=== PATIENT | male | born 1995 | race Caucasian/White ===

== ENCOUNTER 2024-11-24 02:53 | Inpatient (IN) | payer BC, SELFPAY ==
[2024-11-23 22:12] VITALS: BP 179/120
[2024-11-23 22:30] LABS: % Basophils 0.3 % (0-2); % Eosinophils 0.4 % (0-6); % Immature Granulocytes 0.7 % (0-0.5); % Lymphocytes 6.6 % (20.5-51.1); % Monocytes 7.6 % (1.7-9.3); % Neutrophils 84.4 % (42.2-75.2); Absolute Eosinophils 0.1 10^3/uL (0-0.7); Absolute Immature Granulocytes 0.1 10^3/uL (0-0.05); Absolute Lymphocytes 0.9 10^3/uL (1.2-3.4); Absolute Neutrophils 11.4 10^3/uL (1.4-6.5); Hematocrit 40.6 % (39.0-52.0); Hemoglobin 12.3 g/dL (13.0-18.0); Mean Corp Hgb Conc. 30.3 g/dL (33.0-37.0); Mean Corpuscular Hgb 18.7 pg (27.0-31.0); Mean Corpuscular Volume 61.8 fL (80.0-94.0); Nucleated Red Blood Cells % 0 % (-); Platelet Count 249 10^3/uL (130-400); Red Blood Cell Count 6.57 10^6/uL (4.70-6.10); Red Cell Dist. Width 18.2 % (11.5-14.5); White Blood Cell Count 13.5 10^3/uL (4.8-10.8)
[2024-11-23 22:42] LABS: ALT (SGPT) 85 U/L (0-50); AST (SGOT) 36 U/L (17-59); Albumin 4.4 g/dl (3.5-5.0); Alkaline Phosphatase 78 U/L (38-126); Blood Urea Nitrogen 19 mg/dl (9-20); Calcium 9.1 mg/dl (8.4-10.2); Carbon Dioxide 29 mmol/L (22-30); Chloride 101 mmol/L (98-107); D-Dimer 0.77 ug/mlFEU (0.00-0.50); Glucose 111 mg/dl (70-99); Sodium 136 mmol/L (135-145); Total Bilirubin 1.3 mg/dl (0.2-1.3); eGFR > 60.00
[2024-11-23 23:02] LABS: NT-proBNP 2070 pg/ml; Troponin I 0.037 ng/ml
--- NOTE | 2024-11-23 23:33 | ED.GENMED ---
History of Present Illness
General
Chief Complaint: Breathing Problem
Time Seen by Provider: 11/23/24 23:31
History of Present Illness
History of Present Illness:
29-year-old male with history of high blood pressure, not currently on medications presenting to the emergency department for shortness of breath. Patient reports for the past week he been feeling short of breath, worse when laying flat. He also
notes some lower extremity swelling. Reports a family history of cardiac disease, however denies any personal history of cardiac problems. Does report some chest pain when trying to take a deep breath. He had previously been on blood pressure
medications, however his doctor told him to go off of them. Denies fever or cough. Denies history of blood clot, recent surgery, recent travel. Denies additional acute medical complaint
Phy Exam
Physical Exam
Physical Exam:
General: Well-appearing, no clinical signs of dehydration, nontoxic and in no acute distress
HEENT: protecting airway
Neck: appears supple
CV: Tachycardic, regular rhythm, no evidence of cyanosis
Resp: Mild tachypnea with crackles at the bases
Abd: Soft and non-distended, no tenderness to palpation
Extremities: No deformities, +1 pitting edema
Neuro: alert, no focal neurologic deficit
: deferred
Rectal: deferred
Psych: Normal affect
Skin: Intact
Course
Orders/Labs/Results
Orders:
Orders
11/23/24 22:06
EKG [Electrocardiogram (*1)] Urgent
Reason for Study: Shortness of Breath
EKG- Treatment ONCE
11/23/24 22:20
Complete Blood Count/With Diff Urgent
Comprehensive Metabolic Panel Urgent
D-Dimer Urgent
NT-proBNP Urgent
Troponin I Urgent
11/23/24 23:[address] [CT Chest PE Study] Urgent
Comment:
Reason For Exam: SOB
11/24/24 00:01
Nitroglycerin Sublingual [Nitrostat (Sublingual)] 0.4 mg SL [id number] PRN
11/24/24 00:08
Furosemide [Lasix] 40 mg IV ONCE ONE
Abnormal Lab Results
11/23/24
22:20
WBC 13.5 H 10^3/uL
(4.8-10.8)
RBC 6.57 H 10^6/uL
(4.70-6.10)
Hgb 12.3 L g/dL
(13.0-18.0)
MCV 61.8 L fL
(80.0-94.0)
MCH 18.7 L pg
(27.0-31.0)
MCHC 30.3 L g/dL
(33.0-37.0)
RDW 18.2 H %
(11.5-14.5)
Abs Immat Gran (auto) 0.1 H 10^3/uL
(0-0.05)
Absolute Neuts (auto) 11.4 H 10^3/uL
(1.4-6.5)
Absolute Lymphs (auto) 0.9 L 10^3/uL
(1.2-3.4)
Absolute Monos (auto) 1.0 H 10^3/uL
(0.1-0.6)
Immature Gran % 0.7 H %
(0-0.5)
Neutrophils % 84.4 H %
(42.2-75.2)
Lymphocytes % 6.6 L %
(20.5-51.1)
D-Dimer 0.77 H ug/mlFEU
(0.00-0.50)
Glucose 111 H mg/dl
(70-99)
ALT 85 H U/L
(0-50)
Troponin I 0.037 H* ng/ml
11/23/24 22:20
11/23/24 22:20
Vital Signs
Initial and Last Documented VS:
Initial Vital Signs
Temp Pulse Resp BP Pulse Ox
98.3 F 124 30 179/120 98
11/23/24 22:12 11/23/24 22:12 11/23/24 22:12 11/23/24 22:12 11/23/24 22:12
Last Documented Vital Signs
Temp Pulse Resp BP Pulse Ox
98.3 F 121 28 179/120 98
11/23/24 22:12 11/23/24 23:45 11/23/24 23:45 11/23/24 22:12 11/23/24 22:12
MDM/Problems Addressed
MDM/Problems Addressed:
29-year-old male with history of high blood pressure, not currently on antihypertensive medication, presenting for shortness of breath for the past week. Vital signs on arrival significant for tachycardia and hypertension.
On exam, patient is dyspneic, with mild increased work of breathing. Crackles at the bases and +1 lower extremity edema. Examination is concerning for new onset heart failure. PE is also consideration given tachycardia and dyspnea. Patient
initially seen and examined in triage, had laboratory analysis obtained with positive D-dimer, subsequently sent for CT PE. Troponin also slightly elevated with abnormal EKG, however no STEMI criteria. Lateral T wave inversions. Suspected
ischemic demand. CT without evidence of PE, however does show pulmonary edema and pleural effusions. Again concern for new onset heart failure. Will administer sublingual nitro for blood pressure control and CHF. Will also start patient on
Lasix. Plan for admission for cardiac consultation, as well as cardiac monitoring.
*EKG
Interpreted by ED Provider?: Yes
EKG Intrepretation Date: 11/24/24
EKG Intrepretation Time: 00:15
Interpretation: abnormal
Comparison EKG: no comparison EKG present
Heart Rate: 123
Rate: tachycardiac
Rhythm: sinus
[place]: normal axis
Interval: normal interval
QRS Pattern: normal QRS
Ischemia: T-wave inversion (laterally)
*Critical Care Note
Total Time (30-74mins, 75-104mins- exclusive of procedures): Not Applicable
ED Attending Note
-
Portions of this chart may have been created with voice recognition software.� Occasional wrong word or��sound alike� substitutions may have occurred due to the inherent limitations of voice recognition software.
Discharge Plan
Interventions
Interventions:
*Risk Screen - Suicide Last Done: 11/23/24 22:12
*General Assessment Last Done: 11/23/24 22:12
*Neglect/Abuse Screening Last Done: 11/23/24 22:12
ED- Fall Risk Assessment Last Done: 11/23/24 23:39
*ED COVID-19 Vaccine History Last Done: 11/23/24 22:12
ED- Cardiac Assessment Last Done: 11/23/24 23:39
ED- Pulmonary Assessment Last Done: 11/23/24 23:39
Discharge Date and Time
Print Language: SLOVENIAN
[2024-11-23 23:38] VITALS: BMI 49.6
[2024-11-24] VITALS (17 sets, daily range): BP systolic 101–176; BP diastolic 28–131; BMI 46.4
[2024-11-24] MEDS: NITROSTAT (SUBLINGUAL) 0.4 MG SL ×2 (00:26→06:58)
[2024-11-24] MEDS: LASIX 40 MG IV ×3 (00:28→15:30)
--- NOTE | 2024-11-24 02:23 | HPS.HSE ---
Family Physician
-
Family Physician: NOT KNOW UNKNOWN - PT DOES
Chief Complaint
-
Shortness of breath
History of Present Illness
This is 29-year-old male with no known significant past medical history presenting to the emergency department with approximately 1 week of respiratory symptoms.
Patient reported that he started having symptoms about 1 week ago when he felt he was just under the weather due to some mild shortness of breath. Anytime he tries to lay down he starts coughing which is nonproductive. He denied having fevers or
chills. Over the next few days he reported increasing lower extremity edema and weight gain. He also reports increased abdominal distention. He started developing dyspnea on exertion where he is unable to walk a flight of stairs. At baseline
prior to 1 week ago the patient works for a [employer] company and walks several miles a day without dyspnea on exertion and chest pain. He denies any episodes of exertion or exertional angina. He denies any episodes of chest pain at rest. He
denies any pleuritic discomfort.
Patient is not currently on any medications. He denies any recreational drug use. He reports history of hypertension and was on antihypertensives until about 1. It was not refilled. Reports family history positive for mother with CAD. Denies
family history of hypertrophic heart disease or congenital myocardial disease.
Patient denies any recent travel. Denies any sick contacts.
In the emergency department he was afebrile, blood pressure was elevated at 150/100 with a pulse of 119. Was satting 98% on room air. ECG shows sinus tachycardia to 125.. Patient is in V4 through 6. Troponin was 0.05, BNP was elevated at over
2000. CBC shows a mild leukocytosis to 13,000 but otherwise unremarkable. BUN and creatinine were stable at 19 and 0.9. He had a CT angio of the chest which showed no central or segmental pulmonary embolism. Moderate right and small left pleural
effusion. There was trace pulmonary edema.
Medical History
Past Medical History
Past Medical History: Reports HTN
Past Surgical History: Reports None
Social History
Tobacco: Non-smoker
Alcohol: Occasional
Drug: None
Personal:
Living: With Family
Employment: Employed
Family History
Family History: CAD (mother with h/o DC)
Allergies / Home Medications
Allergies reflects when Allergies were last updated in [facility].
Home Medications with original date entered in [facility]
Allergy/Medication List:
Allergies
Allergy/AdvReac Type Severity Reaction Status Date / Time
No Known Allergies Allergy Unverified 11/23/24 22:11
Home Medications
No Meds [No Current Medications] 11/24/24
Review of Systems
-
Constitutional: Reports No Symptoms
EENT: Reports No Symptoms
Respiratory: Reports Trouble Breathing
Cardiac: Reports No Symptoms
Abdomen/GI: Reports No Symptoms
: Reports No Symptoms
Musculoskeletal: Reports No Symptoms
Skin: Reports No Symptoms
Neurological: Reports No Symptoms
Endocrine: Reports No Symptoms
Hematologic/Lymphatic: Reports No Symptoms
Psych: Reports No Symptoms
Physical Exam
Vital Signs
Vital Signs
Temp Pulse Resp BP Pulse Ox
98.3 F 121 24 152/103 93
11/23/24 22:12 11/24/24 02:15 11/24/24 02:14 11/24/24 00:28 11/24/24 02:14
Physical Exam
General: Well Developed, Well Nourished, No Apparent Distress, Comfortable and Conversant
HEENT: NormoCephalic, Anicteric, Moist mucous membranes, Atraumatic and PERRLA
Respiratory: Clear
Cardiac: S1/S2 and Tachycardia
Breast: Deferred by me
GI: Soft, Non Tender, Non Distended and Normal Bowel Sounds
Rectal: Deferred by Provider
Genito-urinary: Deferred by me
Musculoskeletal: No Clubbing, No Cyanosis, Edema, Left Lower Extremity and Edema, Right Lower Extremity
Skin: Warm
Neuro: AO x 3 and Nonfocal/grossly intact
Psych: Calm
Laboratory Results
-
11/23/24 22:20
11/23/24 22:20
Laboratory Results
Total Bilirubin 1.3 mg/dl (0.2-1.3) 11/23/24 22:20
AST 36 U/L (17-59) 11/23/24 22:20
ALT 85 U/L (0-50) H 11/23/24 22:20
Alkaline Phosphatase 78 U/L (38-126) 11/23/24 22:20
Troponin I 0.037 ng/ml H* 11/23/24 22:20
Data Reviewed
-
CT Scan: Report Reviewed by me
Medical Tests (Nuc Med, Echo, EKG etc): Image Personally Visualized and interpreted
Lab Data: Labs Reviewed by me
Old Records: Reviewed
Impression/Plan
-
IMPRESSION:
29 y.o with apparent new onset heart failure with SOB, orthopnea, LE edema, elevated BNP and small bilateral pleural effusions.
PLAN:
1. New CHF - No obvious etiology of CHF. Given rapid onset and tachycardia suspect he has a depressed EF possibly secondary to a viral myocarditis versus ischemia which is less likely. No murmurs on exam. No h/o IV drug use. No pericardial
effusion on CT. No obvious pericarditis on history. Volume overloaded on examination. Hypertensive
- admit to telemetry
- lasix 40mg iv q 12 for now
- strict i/o and weight measures
- fluid restriction
- check esr, crp, tsh, echo in am
- trend troponins
- Will likely need additional bp meds and GDMT pending echo, will start low dose ARB now, coreg pending echo
- a1c, and urinalysis for proteinuria in am
DVT PPX - lovenox sq
Code status - full code
[2024-11-24] MEDS: BENADRYL 25 MG PO (02:37)
[2024-11-24 06:59] LABS: Blood Urea Nitrogen 17 mg/dl (9-20); Calcium 8.7 mg/dl (8.4-10.2); Carbon Dioxide 29 mmol/L (22-30); Chloride 101 mmol/L (98-107); Estimated Creatinine Clearance > 125 ml/min; Glucose 107 mg/dl (70-99); HDL Cholesterol 41 mg/dl; LDL Cholesterol, Calculated 152 mg/dl; Magnesium 1.9 mg/dl (1.6-2.3); Phosphorus 4.1 mg/dl (2.5-4.5); Potassium 4.3 mmol/L (3.5-5.1); Sodium 141 mmol/L (135-145); Total Cholesterol 207 mg/dl (50-199); Triglyceride 70 mg/dl (10-149); Very Low Density Lipoprotein 14 mg/dl (0-30); eGFR > 60.00
[2024-11-24 07:04] LABS: Troponin I 0.039 ng/ml
[2024-11-24 07:28] LABS: Urine Albumin 2+ (Neg - Trace); Urine Bilirubin Negative (Negative); Urine Character Clear (Clear); Urine Color Yellow; Urine Glucose Negative (Negative); Urine Ketone Negative (Negative); Urine Leukocyte Negative (Negative); Urine Nitrite Negative (Negative); Urine Occult Blood Negative (Negative); Urine Urobilinogen 1+ (Neg - 1+); Urine pH 6.5 (5.0-9.0)
[2024-11-24 07:33] LABS: TSH Reflex To Free T4 0.47 uIU/ml (0.47-4.68)
[2024-11-24] MEDS: LOW STRENGTH ASPIRIN 324 MG PO (07:38)
[2024-11-24] MEDS: DIOVAN 80 MG PO (07:38)
[2024-11-24 08:04] LABS: Erythrocyte Sed Rate 19 mm/hour (0-20)
--- NOTE | 2024-11-24 08:08 | W.PN.HOSP.TC ---
Addendum entered and electronically signed by Axel De Leon MD 11/24/24 15:22:
Acute/subacute heart failure, unknown EF, new onset
IV diuretics, seems to be close to euvolemia
Now able to lie flat however still complains of some chest tightness but has improved significantly
Check 2D echocardiogram
Add beta-iva consider Entresto or Aldactone SGLT2 inhibitor depending on EF
Eventually will need ischemic evaluation
Would appreciate cardiology's input
Nonischemic myocardial infarction
Troponins flat do not trend any further await 2D echocardiogram if shows/demonstrated wall motion abnormalities will require ischemic evaluation
Elevated D-dimer likely secondary to body habitus
CT PE study negative
Morbidity obesity
Dietary and exercise with weight modification,
May be a candidate for GLP-1 agonist or bariatric surgery
Once cleared by cardiology plan to DC
Original Note:
Today's Communication/Plan
-
echo today
cards consult pending
continue IV Lasix
Assessment / Plan
Assessment / Plan
#CHF
Continue Lasix 40 mg every 12
Strict I/O and weight measurements
Continue fluid restriction
Trend troponins
Cardiology consulted, appreciate input
Pending A1c and urinalysis today
Started on low-dose ARB, Coreg pending echo per overnight team
DVT prophylaxis�Lovenox
Full code
Anticipated Discharge: Within 24 hours
Subjective/Interval History
-
Date of Service: November 24, 2024
29-year-old male with past medical history of hypertension presents to [facility] with 1 week of respiratory symptoms, now diagnosed as new CHF. Repeat EKG this morning at 1 AM shows sinus tachycardia after getting sublingual nitroglycerin.
Patient reports being significantly better since yesterday. He states that he has 4 urinals overnight and continues to have frequent urges to urinate. He is able to lay down without feeling short of breath now.
Objective Data
-
Labs:
Laboratory Results
11/23/24 11/24/24
22:20 06:07
WBC 13.5 H
Hgb 12.3 L
Hct 40.6
Plt Count 249
Sodium 136 141
Potassium 4.0 4.3
Chloride 101 101
Carbon Dioxide 29 29
BUN 19 17
Creatinine 0.9 0.9
Glucose 111 H 107 H
Calcium 9.1 8.7
Total Bilirubin 1.3
AST 36
ALT 85 H
Alkaline Phosphatase 78
Vital Signs:
Vital Signs
Temp Pulse Resp BP Pulse Ox
99.2 F 116 22 167/99 95
11/24/24 07:32 11/24/24 07:38 11/24/24 06:12 11/24/24 07:38 11/24/24 06:12
I&O
11/23/24 11/24/24 11/25/24
06:59 06:59 06:59
Output Total 400 / 400
Balance -400 / -400
Review of Systems
-
History Source: Patient
Constitutional: Reports No Symptoms
EENT: Reports No Symptoms Reported
Respiratory: Reports Trouble Breathing
Cardiac: Reports No Symptoms
Abdomen/GI: Reports No Symptoms
Breast: Reports No Symptoms
Genitourinary: Reports No Symptoms
Musculoskeletal: Reports No Symptoms
Skin: Reports No Symptoms
Physical Exam
-
General: Well Developed, Well Nourished, No Apparent Distress, Comfortable and Conversant
HEENT: Normocephalic and Atraumatic
Respiratory: Clear to Auscultation
Cardiac: Regular Rhythm and S1/S2
GI: Soft, Nontender, Nondistended and Normal Bowel Sounds
Musculoskeletal: No Clubbing, No Cyanosis, Edema, Right Lower Extrem and Edema, Left Lower Extrem
Skin: Warm and Dry
Neuro: AO x 3
Psych: Calm
Data Reviewed
-
CT Scan: Report Reviewed by me
Labs: Labs Reviewed by me and Discussed with Physician
Old Records: Reviewed
[2024-11-24 09:32] LABS: Urine Amorphous Seen; Urine Squamous Cell 0-2 /LPF (Few)
[2024-11-24 09:33] LABS: Urine Red Blood Cell 0-2 /HPF (0-2); Urine White Cell 0-2 /HPF (0-5)
[2024-11-24 10:05] LABS: Glycohemoglobin (HgbA1c) 5.4 % (4.0-5.6)
--- NOTE | 2024-11-24 10:33 | CON.CAR ---
Addendum entered and electronically signed by Dave Ch MD 11/24/24 11:48:
29-year-old man with hypertension and obesity admitted with increasing shortness of breath, ELMORE, weight gain and edema over the last week or 2. His hypertension has been untreated. Currently, having received furosemide his dyspnea is better.
proBNP was 2079 with a troponin of 0.039.
Tobacco and alcohol: Negative
SH: - Works for [employer]
Allergies: None
Meds: None
116/67, pulse 109, respiratory 9 teen, afebrile, sats 97%, weight is 170.5 kg, head neck exam unremarkable, pleasant, obese, lungs clear, distant heart tones, possibly very soft systolic murmur at apex JVD hard to assess, abdomen obese, 1+ to 2+
edema
EKG: Sinus rhythm, LVH with QRS widening, nonspecific ST and T wave changes
Chest CT: Mild pulmonary edema with moderate right and small left effusion, cholelithiasis, cardiomegaly, no central pulmonary embolus
White count 13.5, hemoglobin 12.3, platelets 249, D-dimer 0.77, BUN and creatinine are 17 and 0.9, proBNP is 2069, troponin is 0.039
Echo: Pending
Impression:
Acute/subacute heart failure unknown EF, suspect HFrEF with nonischemic cardiomyopathy
Morbid obesity
Suspected sleep apnea
Hypertension
Plan:
Suspect he has a nonischemic cardiomyopathy with reduction in EF likely related to his weight.
Will check echocardiogram and thereafter initiate GDMT. Currently on IV furosemide and valsartan. Aspirin has been started as well.
Next will be to add beta-iva, consider Entresto, spironolactone, SGLT2 antagonist.
Eventual ischemic evaluation, though the likelihood of obstructive CAD is low.
Original Note:
Consultation
Consultation Request
Date/Time Consultation Performed: 11/24/24
Requesting Provider: Dr. Myers
Performing Provider: Sridevi Huerta PA-C for Dr. JOHANNA Ch
Reason for Consultation: CHF
Medical History
-
Chief Complaint: SOB
History of Present Illness:
Patient, who goes by Sergio, is a 29 yo M with PMH of HTN, obesity who presented to [facility] for evaluation of SOB. He reports noting worsening ELMORE with associated orthopnea, weight gain, LE edema over the last week. He reports he was diagnosed with HTN ~2
years ago and was started on a medication for this however never followed up and his prescription ran out. He reports for the last 2 days he has had chest tightness with exertion, relieved by rest. Last evening while in ER, he walked around and
reports developing chest discomfort which resolved after 30 minutes of resting. He reports he presently has no chest discomfort. ProBNP 2079. trop 0.039. Denies tobacco or significant ETOH use. Cardiology consulted for evaluation.
PMH:
HTN
Obesity
Past Medical History
Past Medical History: Other (in HPI)
Social History
Tobacco: Non-Smoker
Alcohol: Other (rare)
Employment: Employed
Family History
Family History: CAD
Allergies / Home Medications
Allergy/AdvReac Type Severity Reaction Status Date / Time
No Known Allergies Allergy Unverified 11/23/24 22:11
�Medication �Instructions �Recorded �Confirmed �Type
No Meds [No Current Medications] 11/24/24 11/24/24 History
Review of Systems
-
History Source: Patient
All other systems: Negative unless noted
Physical Exam
Vital Signs
Temp Pulse Resp BP Pulse Ox
99.2 F 116 22 167/99 95
11/24/24 07:32 11/24/24 07:38 11/24/24 06:12 11/24/24 07:38 11/24/24 06:12
Lab Results
11/23/24 22:20
11/24/24 06:07
Troponin I 0.039 ng/ml H* 11/24/24 06:07
Zsv-D-Nhjpfopopxc Pept 2070 pg/ml 11/23/24 22:20
Physical Exam
General: No Apparent Distress, Comfortable and Other (obese)
HEENT: Normocephalic, Anicteric and Moist Mucous Membranes
Respiratory: Non Labored Respirations and Other (decreased BS B/L)
Cardiac: S1/S2, Regular Rhythm and Other (tachy)
GI: Soft, Non Tender, Non Distended and Normal Bowel Sounds
Musculoskeletal: No Clubbing, No Cyanosis and Edema (2+ of B/L LE)
Skin: Warm and Dry
Neuro: AO x 3
Impression / Plan
-
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
Assessment:
Presentation with SOB
Acute CHF, unknown type
Chest tightness
Elevated troponin
Leukocytosis
Elevated CRP
Anemia
HTN
Obesity
family history of CAD
ECHO 11/24/24: pending
Plan:
-Patient presents with shortness of breath/dyspnea on exertion as well as orthopnea, weight gain, lower extremity edema over the last week or so.
-proBNP elevated at [address] with evidence of pulmonary edema as well as moderate right and small left pleural effusions
-with acute CHF, unknown type. Agree with IV Lasix diuresis. Patient reports improvement in breathing since admission
-Check echo
-CHF education
-Troponin 0.039, trend to peak. He does report chest tightness with exertion over the last 2 days. He is currently pain-free. EKG sinus tachycardia with lateral T wave inversion, no prior to compare. Was given 324 mg aspirin in ER. Will start
on aspirin 81 mg daily. Will consider for IV heparin. Would consider eventual inpatient ischemic evaluation
-needs improved BP control. has history of HTN diagnosed 2 years ago however did not follow up to continue his medication. started on valsartan 80mg daily this admission.
-LDL 152. consider addition of statin therapy
-d/w nursing
Data Reviewed
-
EKG: Tracing Personally Visualized and interpreted
CT Scan: Report Reviewed by me
Labs: Labs Reviewed by me
[2024-11-24 12:23] LABS: Troponin I 0.037 ng/ml
--- NOTE | 2024-11-24 13:22 | PTCARENOTE ---
Report given to IVU RN, pt transferred to rm [id number] with all belongings.
--- NOTE | 2024-11-24 14:42 | CARDSERVLU ---
Echocardiogram with [facility] completed after protocol screening completed. Allergies verified.
Patent IV site: LAC (existing INT)
IV site flushed with 0.9% NaCl pre and post administration.
Diluted bolus method utilized to enhance visualization of ventricular reyna.
Total volume given: 3 mL
Patient tolerated all procedures well without complications.
IV flushed with good blood return.
--- NOTE | 2024-11-24 14:51 | CM ---
spoke to pt in cardiac cathlab holding area, he is prev indep, lives with his in an apt with 10 steps to enter. he denies any dc planning needs or dme's. plan is for dc to home when medically stable.
--- NOTE | 2024-11-24 15:52 | CM ---
priced meds with pts perscript plan ([phone])
Entresto is tier2- $30/month
both jardiance and farxiga require step therapy and need a prior auth-#[id number]
[2024-11-24] MEDS: LOVENOX 40 MG SC (18:22)
[2024-11-24] MEDS: ALDACTONE 12.5 MG PO (18:22)
--- NOTE | 2024-11-24 19:28 | PTCARENOTE ---
Pt with new onset CHF received from laboratory tester holding area. Pt denies any discomfort, he states his breathing is much better but still looks visibly SOB at rest and with exertion. Pt on room air, resp. rate up to 24. Telemetry shows sinus rhythm Pt
with very loud snoring and apneic periods. Echo done. Pt starting learning about CHF, new medications and his own health care.
[2024-11-24] MEDS: COREG 3.125 MG PO (20:09)
[2024-11-25] VITALS (8 sets, daily range): BP systolic 124–157; BP diastolic 82–105; BMI 45.8
[2024-11-25 04:28] LABS: Hematocrit 38.7 % (39.0-52.0); Hemoglobin 12.1 g/dL (13.0-18.0); Mean Corp Hgb Conc. 31.3 g/dL (33.0-37.0); Mean Corpuscular Volume 60.7 fL (80.0-94.0); Mean Platelet Volume 9.3 fL (7.4-10.4); Platelet Count 227 10^3/uL (130-400); Red Blood Cell Count 6.38 10^6/uL (4.70-6.10); Red Cell Dist. Width 17.6 % (11.5-14.5); White Blood Cell Count 9.4 10^3/uL (4.8-10.8)
[2024-11-25 04:44] LABS: Blood Urea Nitrogen 21 mg/dl (9-20); Calcium 8.9 mg/dl (8.4-10.2); Carbon Dioxide 27 mmol/L (22-30); Chloride 102 mmol/L (98-107); Estimated Creatinine Clearance > 125 ml/min; Glucose 92 mg/dl (70-99); Sodium 139 mmol/L (135-145); eGFR > 60.00
[2024-11-25] MEDS: COREG 3.125 MG PO ×2 (08:34→19:36)
[2024-11-25] MEDS: DIOVAN 80 MG PO (08:37)
[2024-11-25] MEDS: LASIX 40 MG IV ×2 (08:37→15:59)
[2024-11-25] MEDS: ALDACTONE 12.5 MG PO (08:37)
--- NOTE | 2024-11-25 09:03 | W.PN.CARDCBS ---
Addendum entered and electronically signed by Lucia Cueto MD 11/25/24 10:11:
I saw and examined the patient.
The Wharf Laborer's note was reviewed and I agree with the note.
Comment: Patient presented with shortness of breath and heart failure with mildly reduced ejection fraction. Exam stable with distant heart sounds, decreased breath sounds at the bases with few crackles and trace lower extremity edema. He is
feeling better overall and diuresing well. Hypertension also noted which is likely contributing and new medications noted with guideline directed medical therapy just started. Interestingly patient truly started symptoms about a week ago.
Symptoms appear to be acute. Patient with albumin in urine with no other cause. Patient has not had any infection recently. Triglycerides normal, blood pressure elevated, renal function normal.Troponins mildly elevated. CRP also elevated at 60.
(No known rheumatologic conditions or symptoms)
Plan at this time:
-Guideline directed medical therapy for heart failure with mildly reduced ejection fraction.
-Will switch valsartan to Entresto twice daily. La is acceptable through case management.
-Continue good blood pressure control. Next plan will be to further increase carvedilol
-Will add SGLT2 inhibitor prior to discharge.
-Continue diuresis for now.
-Right and left heart catheterization on Wednesday. Discussed with patient. Will continue discussed in detail and answered questions.
-Eventual outpatient sleep apnea testing (he snores by report)
-Given elevated protein in urine I have asked primary service (through secure texting) to exclude nephropathy.
Original Note:
Today's Communication / Plan
-
Continue diuresis
Continue medical therapy with coreg, valsartan, and spironolactone
Consider addition of SGLT2 inhibitor
Eventual C
Consider nephro evaluation
Impression / Plan
-
Primary Produce Associate: None prior to admission, initially seen by JOHANNA Ch
Assessment:
Presentation with SOB
Acute HFmrEF
Cardiomyopathy, EF 40%
Chest tightness
Nonischemic myocardial injury
Leukocytosis
Elevated CRP
Anemia
HTN
Obesity
family history of CAD
ECHO 11/24/24: EF 40%, mild-mod LVH, global hypokinesis, mild MR, normal size RV with mild hypokinesis
Plan:
-Presented with SOB, orthopnea, weight gain, and LE edema. Admitted with new HFmrEF.
-Diuresing with IV lasix 40mg BID. Weight down 19 lbs to 356 lbs on 11/25.
-Creat stable at 0.9. Continue diuresis and follow daily weights, I&Os.
-Echo 11/24 with EF 40%, mild MR, and mild-moderate LVH as noted above.
-CHF education.
-Troponin peaked at 0.039, down to 0.037. Suspect nonischemic myocardial injury in the setting of acute heart failure.
-No further chest pain. Continue aspirin 81mg daily. Eventually will need ischemic evaluation.
-BP has been uncontrolled for likely at least 2 years.
-New to valsartan 80mg daily, coreg 3.125mg BID, and spironolactone 12.5mg daily 11/24. BP improving.
-Eventually consider addition of SGLT2 inhibitor.
-LDL 152. consider addition of statin therapy
-Noted to have 2+ protein in urine. Consider nephrology eval given presentation w/ new anasarca.
HPI: Patient, who goes by Sergio, is a 29 yo M with PMH of HTN, obesity who presented to [facility] for evaluation of SOB. He reports noting worsening ELMORE with associated orthopnea, weight gain, LE edema over the last week. He reports he was diagnosed with
HTN ~2 years ago and was started on a medication for this however never followed up and his prescription ran out. He reports for the last 2 days he has had chest tightness with exertion, relieved by rest. Last evening while in ER, he walked around
and reports developing chest discomfort which resolved after 30 minutes of resting. He reports he presently has no chest discomfort. ProBNP 2079. trop 0.039. Denies tobacco or significant ETOH use. Cardiology consulted for evaluation.
Progress Note - Produce Associate
Subjective
Date of Service: November 25, 2024
Reports breathing is improving w/ diuresis.
Objective
Labs:
11/25/24 03:54
11/25/24 03:54
Labs
Hgb 12.1 g/dL (13.0-18.0) L 11/25/24 03:54
Hct 38.7 % (39.0-52.0) L 11/25/24 03:54
Plt Count 227 10^3/uL (130-400) 11/25/24 03:54
Sodium 139 mmol/L (135-145) 11/25/24 03:54
Potassium 4.0 mmol/L (3.5-5.1) 11/25/24 03:54
BUN 21 mg/dl (9-20) H 11/25/24 03:54
Creatinine 0.9 mg/dL (0.7-1.3) 11/25/24 03:54
Glucose 92 mg/dl (70-99) 11/25/24 03:54
Troponins
11/23/24 11/24/24 11/24/24
22:20 06:07 11:31
Troponin I 0.037 H* 0.039 H* 0.037 H*
Vital Signs and I&O:
Vital Signs
Temp Pulse Resp BP Pulse Ox
98.2 F 101 18 155/91 97
11/25/24 08:02 11/25/24 08:34 11/25/24 08:02 11/25/24 08:34 11/25/24 08:02
Vital Signs
Temp Pulse Resp BP Pulse Ox
98.2 F 101 18 155/91 97
11/25/24 08:02 11/25/24 08:34 11/25/24 08:02 11/25/24 08:34 11/25/24 08:02
Intake & Output
11/23/24 11/24/24 11/25/24 11/26/24
06:59 06:59 06:59 06:59
Intake Total 660 / 660
Output Total 800 / 800
Balance -140 / -140
Physical Exam
Physical Exam
GEN: No distress, awake, alert, oriented x3
HEENT: supple, anicteric, mmm
LUNGS: CTA b/l, no wheezes/rales
CV: Reg, S1/S2, no murmur
EXT: No clubbing, or cyanosis, +1 edema b/l LE
NEURO: Gross non-focal
SKIN: Warm, dry, no rash
[2024-11-25] MEDS: LOW STRENGTH ASPIRIN 81 MG PO (11:37)
--- NOTE | 2024-11-25 12:14 | W.PN.HOSP.TC ---
Today's Communication/Plan
-
Assessment / Plan
Assessment / Plan
NAD
Scleral Anicteric
MMM
No JVD, No HJR
Bibasilar crackles
RRR, S1/S2
Obese ,soft, NT, ND, BS+
Warm, Dry, 1+ ptting edema
AAOx3
Calm
Acute/subacute heart failure mr EF - 40%, new onset
IV diuretics, seems to be close to euvolemia
Add beta-iva
Add entresto
Add MRA
SGLT2i on DC pper Cards
LHC//RHC on 11/27
Would appreciate cardiology's input
Nonischemic myocardial infarction
Troponins flat, 2d echo show global hypokinesis, likely NICM, LHC/RHC planned for 11/27
CRP is up
Elevated D-dimer likely secondary to body habitus
CT PE study negative
Morbidity obesity
Dietary and exercise with weight modification,
May be a candidate for GLP-1 agonist or bariatric surgery
Anticipated Discharge: > 48 hours
Subjective/Interval History
-
Date of Service: November 25, 2024
Seen and examined. No new complaints. No acute overnight events.
Understands that he is going for left and right heart catheterization on Monday 11/27
Objective Data
-
Labs:
Laboratory Results
11/25/24
03:54
WBC 9.4
Hgb 12.1 L
Hct 38.7 L
Plt Count 227
Sodium 139
Potassium 4.0
Chloride 102
Carbon Dioxide 27
BUN 21 H
Creatinine 0.9
Glucose 92
Calcium 8.9
Vital Signs:
Vital Signs
Temp Pulse Resp BP Pulse Ox
98.5 F 96 18 124/82 100
11/25/24 11:31 11/25/24 12:00 11/25/24 11:31 11/25/24 11:35 11/25/24 11:31
I&O
11/24/24 11/25/24 11/26/24
06:59 06:59 06:59
Intake Total 660 / 660
Output Total 800 / 800
Balance -140 / -140
[2024-11-25 12:31] LABS: Protein/creatinine Ratio 0.4; Urine Protein 16 mg/dl
[2024-11-25] MEDS: LOVENOX 40 MG SC (18:34)
[2024-11-25] MEDS: ENTRESTO 24 MG/26 MG 1 TAB PO (19:36)
--- NOTE | 2024-11-25 21:52 | PTCARENOTE ---
Pt rec'd at change of shift awake,alert no c/o pain or sob. Pt aware of fluid restriction and maintaining accurate I@O. Sinus on telemetry.
[2024-11-26] VITALS (9 sets, daily range): BP systolic 117–148; BP diastolic 82–130; BMI 45.1
[2024-11-26 04:59] LABS: Hematocrit 43.3 % (39.0-52.0); Hemoglobin 13.1 g/dL (13.0-18.0); Mean Corp Hgb Conc. 30.3 g/dL (33.0-37.0); Mean Corpuscular Hgb 18.7 pg (27.0-31.0); Mean Corpuscular Volume 61.9 fL (80.0-94.0); Mean Platelet Volume 9.6 fL (7.4-10.4); Platelet Count 254 10^3/uL (130-400); Red Blood Cell Count 6.99 10^6/uL (4.70-6.10); White Blood Cell Count 8.6 10^3/uL (4.8-10.8)
[2024-11-26 05:18] LABS: Blood Urea Nitrogen 22 mg/dl (9-20); Calcium 9.1 mg/dl (8.4-10.2); Carbon Dioxide 28 mmol/L (22-30); Chloride 102 mmol/L (98-107); Estimated Creatinine Clearance > 125 ml/min; Glucose 97 mg/dl (70-99); Potassium 4.3 mmol/L (3.5-5.1); Sodium 140 mmol/L (135-145); eGFR > 60.00
[2024-11-26] MEDS: ENTRESTO 24 MG/26 MG 1 TAB PO ×2 (08:27→20:24)
[2024-11-26] MEDS: LOW STRENGTH ASPIRIN 81 MG PO (08:27)
[2024-11-26] MEDS: ALDACTONE 12.5 MG PO (08:27)
[2024-11-26] MEDS: LASIX 40 MG IV ×2 (08:28→16:57)
[2024-11-26] MEDS: COREG 3.125 MG PO (08:28)
--- NOTE | 2024-11-26 09:59 | PTCARENOTE ---
Assumed care. Patient feeling better, denies shortness of breath, lungs clear. SR HR in the 90's. Plan of care reviewed, call rizzo in reach
--- NOTE | 2024-11-26 12:02 | W.PN.HOSP.TC ---
Today's Communication/Plan
-
for lhc/rhc tomorow
Assessment / Plan
Assessment / Plan
NAD
Scleral Anicteric
MMM
No JVD, No HJR
Bibasilar crackles
RRR, S1/S2
Obese ,soft, NT, ND, BS+
Warm, Dry, 1+ ptting edema
AAOx3
Calm
Acute/subacute heart failure mr EF - 40%, new onset
IV diuretics, seems to be close to euvolemia
Add beta-iva
Add entresto
Add MRA
SGLT2i on DC per Cards
LHC//RHC on 11/27
If NICM then would consider a Cardiac MRI
Outpaitent sleep study
Nonischemic myocardial infarction
Troponins flat, 2d echo show global hypokinesis, likely NICM, LHC/RHC planned for 11/27
CRP is up
Elevated D-dimer likely secondary to body habitus
CT PE study negative
Morbidity obesity
Dietary and exercise with weight modification,
May be a candidate for GLP-1 agonist or bariatric surgery
Anticipated Discharge: 24 - 48 hours
Subjective/Interval History
-
Date of Service: November 26, 2024
seen and examined
no new comaplitns
no acute overnight events
Objective Data
-
Labs:
Laboratory Results
11/26/24
04:39
WBC 8.6
Hgb 13.1
Hct 43.3
Plt Count 254
Sodium 140
Potassium 4.3
Chloride 102
Carbon Dioxide 28
BUN 22 H
Creatinine 0.9
Glucose 97
Calcium 9.1
Vital Signs:
Vital Signs
Temp Pulse Resp BP Pulse Ox
98.3 F 93 20 137/90 97
11/26/24 11:07 11/26/24 10:00 11/26/24 11:07 11/26/24 07:28 11/26/24 11:07
I&O
11/25/24 11/26/24 11/27/24
06:59 06:59 06:59
Intake Total 660 / 660 480 / 480
Output Total 800 / 800 1700 / 1700
Balance -140 / -140 -1220 / -1220
--- NOTE | 2024-11-26 14:32 | W.PN.CARDCBS ---
Today's Communication / Plan
-
Continue diuresis
Heart failure team consult. Dietary education.
Guideline directed medical therapy as tolerates. Will increase carvedilol to 6.25 mg twice daily. Continue Entresto. Continue spironolactone. Eventually could consider SGLT2 inhibitor.
Right left heart catheterization tomorrow.
Outpatient sleep study
Impression / Plan
-
Primary Investigative Research Specialist: None prior to admission, initially seen by JOHANNA Ch
Assessment:
Presentation with SOB
Acute HFmrEF
Cardiomyopathy, EF 40%
Chest tightness
Nonischemic myocardial injury
Leukocytosis
Elevated CRP
Anemia
HTN
Obesity
family history of CAD
ECHO 11/24/24: EF 40%, mild-mod LVH, global hypokinesis, mild MR, normal size RV with mild hypokinesis
Plan:
-Presented with SOB, orthopnea, weight gain, and LE edema. Admitted with new HFmrEF of unclear etiology with minimally elevated troponins in the setting of hypertension.
-Diuresing with IV lasix 40mg BID. Weight down 24 pounds to 351 pounds 11/26/2024. Hold Lasix tomorrow.
-Heart failure team consult. Dietary education.
-Creat stable. Continue diuresis and follow daily weights, I&Os.
-Echo 11/24 with EF 40%, mild MR, and mild-moderate LVH as noted above.
-Guideline directed medical therapy as tolerates. Blood pressure has improved. Will increase carvedilol to 6.25 mg twice daily. Continue Entresto. Continue spironolactone. Eventually could consider SGLT2 inhibitor.
-Given new diagnosis of cardiomyopathy with acute heart failure with mildly reduced ejection fraction and mildly elevated troponins with initial chest pain patient will undergo right and left heart catheterization tomorrow. Risks and benefits and
procedure discussed at length and he is agreeable to proceed. If negative etiology could be hypertension related or myocarditis related. Elevated CRP noted.
-Troponin peaked at 0.039, down to 0.037.
-Continue aspirin 81mg daily.
-BP has been uncontrolled for likely at least 2 years. Currently stable.
-He will need outpatient sleep study.
-LDL 152. consider addition of statin therapy
-Noted to have 2+ protein in urine. Urine creatinine levels are acceptable. No further workup at this time and this may be in part related to uncontrolled hypertension.
HPI: Patient, who goes by Sergio, is a 29 yo M with PMH of HTN, obesity who presented to [facility] for evaluation of SOB. He reports noting worsening ELMORE with associated orthopnea, weight gain, LE edema over the last week. He reports he was diagnosed with
HTN ~2 years ago and was started on a medication for this however never followed up and his prescription ran out. He reports for the last 2 days he has had chest tightness with exertion, relieved by rest. Last evening while in ER, he walked around
and reports developing chest discomfort which resolved after 30 minutes of resting. He reports he presently has no chest discomfort. ProBNP 2079. trop 0.039. Denies tobacco or significant ETOH use. Cardiology consulted for evaluation.
Progress Note - Investigative Research Specialist
Subjective
Date of Service: November 26, 2024
He denies chest pain, palpitations, dizziness and syncope
Objective
Labs:
11/26/24 04:39
11/26/24 04:39
Labs
Hgb 13.1 g/dL (13.0-18.0) 11/26/24 04:39
Hct 43.3 % (39.0-52.0) 11/26/24 04:39
Plt Count 254 10^3/uL (130-400) 11/26/24 04:39
Sodium 140 mmol/L (135-145) 11/26/24 04:39
Potassium 4.3 mmol/L (3.5-5.1) 11/26/24 04:39
BUN 22 mg/dl (9-20) H 11/26/24 04:39
Creatinine 0.9 mg/dL (0.7-1.3) 11/26/24 04:39
Glucose 97 mg/dl (70-99) 11/26/24 04:39
Troponins
11/23/24 11/24/24 11/24/24
22:20 06:07 11:31
Troponin I 0.037 H* 0.039 H* 0.037 H*
Vital Signs and I&O:
Vital Signs
Temp Pulse Resp BP Pulse Ox
98.3 F 84 20 148/88 97
11/26/24 11:07 11/26/24 13:00 11/26/24 11:07 11/26/24 11:06 11/26/24 11:07
Vital Signs
Temp Pulse Resp BP Pulse Ox
98.3 F 84 20 148/88 97
11/26/24 11:07 11/26/24 13:00 11/26/24 11:07 11/26/24 11:06 11/26/24 11:07
Intake & Output
11/24/24 11/25/24 11/26/24 11/27/24
06:59 06:59 06:59 06:59
Intake Total 660 / 660 480 / 480
Output Total 800 / 800 1700 / 1700 1100 / 1100
Balance -140 / -140 -1220 / -1220 -1100 / -1100
Physical Exam
Physical Exam
General: Well developed, well nourished in NAD.
Heart: Distant heart sounds non displaced PMI, RRR, no murmurs, No S3, S4, no rubs.
Lungs: Clear to auscultation bilaterally, no wheeze, rhonchi, rubs bilaterally,
normal expiratory phase.
Extremities: No clubbing, cyanosis and trace edema bilaterally.
Neuro: Grossly nonfocal, awake, alert and oriented x3.
[2024-11-26] MEDS: LOVENOX 40 MG SC (16:57)
[2024-11-26] MEDS: COREG 6.25 MG PO (20:25)
--- NOTE | 2024-11-26 21:00 | PTCARENOTE ---
Rec'd at change of shift. AAO*3, VSS, and in NSR on TELE monitor. Pt denies any pain or discomfort. Pt aware on NPO status at midnight and agreed to fluid restriction. Pt resting with call rizzo in reach and plan of care ongoing.
[2024-11-27] VITALS (13 sets, daily range): BP systolic 94–150; BP diastolic 61–91; BMI 45.1
[2024-11-27 04:34] LABS: Hematocrit 45.1 % (39.0-52.0); Hemoglobin 13.5 g/dL (13.0-18.0); Mean Corp Hgb Conc. 29.9 g/dL (33.0-37.0); Mean Corpuscular Hgb 18.6 pg (27.0-31.0); Mean Corpuscular Volume 62.3 fL (80.0-94.0); Mean Platelet Volume 9.5 fL (7.4-10.4); Platelet Count 276 10^3/uL (130-400); Red Blood Cell Count 7.24 10^6/uL (4.70-6.10); Red Cell Dist. Width 17.9 % (11.5-14.5); White Blood Cell Count 7.8 10^3/uL (4.8-10.8)
--- NOTE | 2024-11-27 07:40 | W.PN.HOSP.TC ---
Today's Communication/Plan
-
Left heart cath right heart cath today
Assessment / Plan
Assessment / Plan
#HFmrEF
Right/left heart cath today
Continue IV Lasix 40 mg every 12 hours
Continue carvedilol 6.25 twice daily
Continue Entresto twice daily
Continue spironolactone 12.5 mg
Outpatient sleep study
#Hypertension
Continue hydralazine 10 mg
#Nonischemic myocardial infarction
2D echo shows global hypokinesis
Left heart cath right heart cath planned for today
CRP elevated, continue to monitor
#Elevated D-dimer likely
CT PE negative
#Morbid obesity
Recommended dietary and exercise modification
Follow-up with PCP outpatient for consideration of GLP-1 agonist or surgery
Full code
Anticipated Discharge: 24 - 48 hours
Subjective/Interval History
-
Date of Service: November 27, 2024
Overnight patient reports no acute events. He states that he is feeling significantly better than last week. He is able to comfortably lay on his back. He feels that the swelling in his legs is gone down.
Objective Data
-
Labs:
Laboratory Results
11/27/24
04:26
WBC 7.8
Hgb 13.5
Hct 45.1
Plt Count 276
Vital Signs:
Vital Signs
Temp Pulse Resp BP Pulse Ox
97.4 F 88 18 134/89 98
11/27/24 07:25 11/27/24 07:24 11/27/24 07:25 11/27/24 07:24 11/27/24 07:25
I&O
11/26/24 11/27/24 11/28/24
06:59 06:59 06:59
Intake Total 480 / 480 480 / 480
Output Total 1700 / 1700 2225 / 2225
Balance -1220 / -1220 -174 / -1744
Physical Exam
-
General: Well Developed, Well Nourished, No Apparent Distress, Comfortable, Conversant and Morbidly Obese
HEENT: Normocephalic and Atraumatic
Respiratory: Clear to Auscultation
Cardiac: Regular Rhythm and S1/S2
GI: Soft, Nontender, Nondistended and Normal Bowel Sounds
Musculoskeletal: No Clubbing, No Cyanosis, Edema, Right Lower Extrem and Edema, Left Lower Extrem
Skin: Warm and Dry
Neuro: AO x 3
Psych: Calm
Data Reviewed
-
Labs: Labs Reviewed by me and Discussed with Physician
Old Records: Reviewed
--- NOTE | 2024-11-27 08:20 | W.PN.UPDATE ---
Update Note
Progress Note Update
I saw and evaluated the patient. I reviewed the resident�s note and agree with findings and plan as documented in the resident�s note.
Denies chest pain or shortness of breath.
Gen: NAD, AAOx3.
Eyes: EOMI, PERRLA, no scleral icterus.
Neck: supple.
CV: RRR, +S1/S2, no m/r/g.
Resp: CTAB, no rales, wheezes, or rhonchi.
Abd: +BS, soft, NT, ND
Skin: No rashes.
Neuro: CN 2-12 intact, non-focal.
Psych: Normal mood and affect.
CTA chest: Evaluation of pulmonary arterial vasculature significantly limited by motion artifact, without findings to suggest central pulmonary embolism. Peripheral pulmonary embolism cannot be excluded. Findings suggesting mild pulmonary edema with
moderate right and small left pleural effusions. Mild cardiomegaly. Cholelithiasis.
Echo:
1. Dilated left ventricle with mild to moderate left ventricular hypertrophy, global hypokinesis and ejection fraction 40%
2. Mitral annular calcification, thickened mitral leaflets, mild mitral regurgitation and dilated left atrium
3. Normal aortic valve
4. Normal size right ventricle with mild hypokinesis, could not determine pulmonary artery systolic pressure
Acute HFmrEF:
-echo above, EF 40%
-cont IV Lasix
-cont BB/Entresto/Aldactone
-SGLT2i on discharge as per cards
-LHC/RHC today
-If NICM then would consider a Cardiac MRI
-outpatient sleep study
-elevated trop is nonischemic myocardial ijnury
Other problems:
Elevated D-dimer likely secondary to body habitus
Morbidity obesity due to excess calories
FULL/Lovenox
[2024-11-27] MEDS: ALDACTONE 12.5 MG PO (09:11)
[2024-11-27] MEDS: LOW STRENGTH ASPIRIN 81 MG PO (09:12)
[2024-11-27] MEDS: COREG 6.25 MG PO ×2 (09:12→20:41)
[2024-11-27] MEDS: ENTRESTO 24 MG/26 MG 1 TAB PO ×2 (09:12→20:41)
[2024-11-27] MEDS: FLUSH (NSS) 1 FLUSH IV (09:13)
--- NOTE | 2024-11-27 10:10 | PTCARENOTE ---
Received patient this morning resting in bed, S.O. at the bedside. Patient is NPO x meds, waiting for cardiac cath today.
[2024-11-27] MEDS: LASIX IV (11:30)
--- NOTE | 2024-11-27 12:50 | ITS.CL.CATH ---
Physicians Assistant - Catheterization
Cardiac Catheterization
Procedure Report:
LEFT AND RIGHT HEART CATHETERIZATION
Date of Procedure: November 27, 2024
Referring: Dave Ch MD
PROCEDURES:
1. Left heart catheterization, coronary angiogram.
2. Right heart catheterization.
3. Ultrasound-guided access
INDICATION: 29-year-old man with past medical history of hypertension, hyperlipidemia, morbid obesity who presents with progressive dyspnea on exertion and lower extremity edema found to have acute decompensated systolic and diastolic heart failure
and a new ejection fraction of 40 to 45% being referred for left and right heart catheterization to assess invasive hemodynamics and rule out obstructive CAD.
ACCESS: 1. Right radial artery, 6 Argentine sheath, under ultrasound guidance.
2. Right brachial vein, 6 Argentine sheath
Ultrasound was utilized for vascular access. The radial artery was visualized under ultrasound, and the vessel was patent and pulsatile. An image was stored permanently in the patient's medical record. Under direct ultrasound guidance, a 6 Argentine
sheath was inserted into the artery using a micropuncture kit through a modified Seldinger technique.
HEMODYNAMICS : (mmHg)
RA (m) : 17
RV (s/d,m) : 35/16, 22
PA (s/d, m) : 37/25, 29
PCWP (m) : 20
PA saturation: 51.5% on room air
AO saturation: 95.2% on room air
RA saturation: 56.3% on room air
Cardiac Output : 4.37 L/min by Olinda calculation
Cardiac Index : 1.59 L/min/m-2 by Olinda calculation
Systemic vascular resistance: 1134 dsc^(-5)
Pulmonary vascular resistance: 1.60 hodge unit
AO (s/d) : 88/63
LV (s/d) : 89/14
LVEDP : 18
Of note, soon after the Sterling-Chinyere catheter was inserted into the PA, patient had significant bradycardia with transient 2-1 block and was treated with 1 mg of atropine with recovery of heart rate and blood pressure. He had transient cold sweats and
lightheadedness which resolved soon after the heart rate normalized.
CORONARY FINDINGS
DOMINANCE: Right
LEFT MAIN: The left main artery is a large-caliber vessel which gives rise to the left anterior descending artery, a large ramus intermedius branch and a small left circumflex artery. There is minimal luminal irregularities.
LEFT ANTERIOR DESCENDING: The left anterior descending artery is a large-caliber vessel which gives rise to multiple small to medium caliber diagonal branches as it courses through the anterior interventricular groove and wraps around the apex.
There is minimal luminal irregularities.
RAMUS INTERMEDIUS: The ramus intermedius branch is a large caliber branching vessel with minimal luminal irregularities.
: The left circumflex artery is a small to medium caliber vessel with a small to medium caliber obtuse marginal branch. There is minimal luminal irregularities.
RIGHT CORONARY ARTERY: The right coronary artery is a large-caliber, dominant vessel which gives rise to the right posterior descending artery and the right posterolateral system. There is minimal luminal irregularities.
SEDATION: 48 minutes of procedural sedation was utilized. An independent special forces medical sergeant was present to assist with and help manage the patient's level of consciousness and physiologic status.
RADIATION SUMMARY: Fluoro Time (min): 8.0, Dose (mGy): 957.28, DAP (Gy.cm2) : 76.14
Closure Device: Vascular band over right radial artery, 11 cc of air. Manual pressure was held over the right brachial venous access site with successful hemostasis.
CONCLUSIONS
1. No obstructive coronary artery disease.
2. Significantly elevated right and left-sided filling pressures with reduced cardiac output.
3. Of note, soon after the Sterling-Chinyere catheter was inserted into the PA, patient had significant bradycardia with transient 2-1 AVblock and was treated with 1 mg of atropine with recovery of heart rate and blood pressure. He had transient cold
sweats and lightheadedness which resolved soon after the heart rate normalized.
RECOMMENDATIONS
1. Wean radial band per protocol.
2. Optimization of goal-directed medical therapy for nonischemic cardiomyopathy.
3. Aggressive management of cardiovascular risk factors.
4. Eventual referral for outpatient cardiac rehab.
Copy to:Dave Ch MD
Lorrie Berkowitz MD, FAC, [facility]
--- NOTE | 2024-11-27 15:46 | CM ---
Reviewed chart. Met with Mr. Klein to review discharge plans. He states he is feeling okay. We reviewed the co-pay for Entresto and the $10.00 co-pay card. Placed the coupon in his red discharge folder. Prior to admission he resides with his
spouse in an apartment with ten steps to enter. Prior to admission he was independent with ambulation and adls. He does not have any DME in the home. He has a prescription plan and uses [facility]. Medical work-up in progress. The discharge
plan is to return home with his spouse when medically stable.
[2024-11-27] MEDS: LASIX 40 MG IV (17:20)
--- NOTE | 2024-11-27 17:45 | PTCARENOTE ---
Patient returned from the labourers at 1420, initially pale and sleepy but denied any pain, discomfort or lightheadedness. VS monitored, tolerating fluids and ate a meal. Feeling much better now, BP 128/74, SR on the monitor. Given PM dose of IV
lasix, instructed to call nursing when he needs to get oob for the first time. Radial band off of his right wrist, dressing is dry and intact with a strong radial pulse. Call rizzo in reach, sleeping now.
[2024-11-27] MEDS: LOVENOX 40 MG SC (20:40)
--- NOTE | 2024-11-28 01:04 | PTCARENOTE ---
Received patient at change of shift. SR on the monitor, HR in the 60s. R radial and brachial dressings CDI. No complaints from pt at this time, call rizzo within reach.
[2024-11-28 02:52] VITALS: BP 116/83
[2024-11-28 03:23] VITALS: BMI 45.1
[2024-11-28 04:18] LABS: % Basophils 0.7 % (0-2); % Eosinophils 1.4 % (0-6); % Immature Granulocytes 0.5 % (0-0.5); % Lymphocytes 24.4 % (20.5-51.1); Absolute Basophils 0.1 10^3/uL (0-0.2); Absolute Eosinophils 0.1 10^3/uL (0-0.7); Absolute Lymphocytes 1.9 10^3/uL (1.2-3.4); Absolute Monocytes 0.5 10^3/uL (0.1-0.6); Mean Corp Hgb Conc. 30.2 g/dL (33.0-37.0); Mean Corpuscular Hgb 18.5 pg (27.0-31.0); Mean Corpuscular Volume 61.2 fL (80.0-94.0); Mean Platelet Volume 9.9 fL (7.4-10.4); Nucleated Red Blood Cells % 0 % (-); Platelet Count 274 10^3/uL (130-400); Red Blood Cell Count 7.03 10^6/uL (4.70-6.10); Red Cell Dist. Width 17.7 % (11.5-14.5); White Blood Cell Count 7.6 10^3/uL (4.8-10.8)
[2024-11-28 04:22] LABS: ALT (SGPT) 48 U/L (0-50); AST (SGOT) 26 U/L (17-59); Albumin 4.1 g/dl (3.5-5.0); Alkaline Phosphatase 62 U/L (38-126); Blood Urea Nitrogen 25 mg/dl (9-20); Calcium 9.3 mg/dl (8.4-10.2); Carbon Dioxide 23 mmol/L (22-30); Chloride 103 mmol/L (98-107); Estimated Creatinine Clearance > 125 ml/min; Glucose 90 mg/dl (70-99); Potassium 4.8 mmol/L (3.5-5.1); Sodium 138 mmol/L (135-145); Total Bilirubin 0.7 mg/dl (0.2-1.3); Total Protein 6.8 g/dl (6.3-8.2); eGFR > 60.00
[2024-11-28 07:55] VITALS: BP 131/96
[2024-11-28 07:56] VITALS: BP 131/90
--- NOTE | 2024-11-28 08:21 | W.PN.UPDATE ---
Addendum entered and electronically signed by Thomas Breaux MD 11/28/24 13:40:
Total time spent on d/c = 40 min. This included today's physical exam, progress note, review of laboratory and diagnostic data, preparation of discharge documents and prescriptions, and discussions about the pt's hospital course and discharge plan
with the patient and other certified medical technician assistant involved in the patient's care.
Original Note:
Update Note
Progress Note Update
I saw and evaluated the patient. I reviewed the resident�s note and agree with findings and plan as documented in the resident�s note.
No new complaints.
Gen: NAD, AAOx3.
Eyes: EOMI, PERRLA, no scleral icterus.
Neck: supple.
CV: remains RRR, +S1/S2, no m/r/g.
Resp: remains CTAB, no rales, wheezes, or rhonchi.
Skin: No rashes. No edema
Neuro: CN 2-12 intact, non-focal.
Psych: Normal mood and affect.
CTA chest: Evaluation of pulmonary arterial vasculature significantly limited by motion artifact, without findings to suggest central pulmonary embolism. Peripheral pulmonary embolism cannot be excluded. Findings suggesting mild pulmonary edema with
moderate right and small left pleural effusions. Mild cardiomegaly. Cholelithiasis.
Echo:
1. Dilated left ventricle with mild to moderate left ventricular hypertrophy, global hypokinesis and ejection fraction 40%
2. Mitral annular calcification, thickened mitral leaflets, mild mitral regurgitation and dilated left atrium
3. Normal aortic valve
4. Normal size right ventricle with mild hypokinesis, could not determine pulmonary artery systolic pressure
RHC/LHC 2/3:
1. No obstructive coronary artery disease.
2. Significantly elevated right and left-sided filling pressures with reduced cardiac output.
3. Of note, soon after the [place]-Chinyere catheter was inserted into the PA, patient had significant bradycardia with transient 2-1 AVblock and was treated with 1 mg of atropine with recovery of heart rate and blood pressure. He had transient cold
sweats and lightheadedness which resolved soon after the heart rate normalized.
Acute HFmrEF:
-echo above, EF 40%
-cont IV Lasix
-cont BB/Entresto/Aldactone
-LHC/RHC 2/3 above, no obstructive CAD, elevated R and L-sided filling pressures, decreased CO
-start Farxiga
-outpatient sleep study
-elevated trop is nonischemic myocardial injury
Other problems:
Elevated D-dimer likely secondary to body habitus
Morbidity obesity due to excess calories
FULL/Lovenox
--- NOTE | 2024-11-28 08:36 | W.PN.CARDCBS ---
Addendum entered and electronically signed by Matthias Gregorio MD 11/28/24 08:52:
I saw and examined the patient.
The Charge Loader's note was reviewed and I agree with the note.
Comment:
GEN: No distress, awake, Ox3
HEENT: supple, anicteric, mmm
LUNGS: CTA, no wheezes/rales
CV: Reg, S1/S2, 1/6 syst LSB, S3+
ABD: soft, BS+, NT/ND
EXT: No edema
NEURO: Gross non-focal
SKIN: No rash
Plan:
Cath results reviewed with patient. No significant CAD. Continue medical therapy for nonischemic cardiomyopathy.
Continue Coreg, Entresto, spironolactone, and IV Lasix.
Will add Farxiga.
Will try to diurese for 24 hours and likely discharge in a.m. Creatinine normal at 0.9.
Original Note:
Today's Communication / Plan
-
continue IV diuresis today. likely transition to po in AM
continue GDMT of CM - add farxiga today
CHF education
OP sleep study
Impression / Plan
-
Primary Inspector Technician: None prior to admission, initially seen by JOHANNA Ch
Assessment:
Presentation with SOB
Acute HFmrEF
Cardiomyopathy, EF 40%
Chest tightness
Nonischemic myocardial injury
Leukocytosis
Elevated CRP
Anemia
HTN
Obesity
family history of CAD
ECHO 11/24/24: EF 40%, mild-mod LVH, global hypokinesis, mild MR, normal size RV with mild hypokinesis
Plan:
-Presented with SOB, orthopnea, weight gain, and LE edema. Admitted with new HFmrEF of unclear etiology with minimally elevated troponins in the setting of hypertension.
-reports feeling much improved from admission
-Diuresing with IV lasix 40mg BID. Weight down 24 pounds to 351 pounds 11/28/2024. Cr stable. consider transition to po lasix 11/29.
-CHF/dietary education
-echo with EF 40% as above. trop peaked 0.039. s/p cardiac catheterization 11/27 with nonobstructive CAD and PCWP 20. CI 1.59.
-GDMT as able. he presented with uncontrolled HTN. continue coreg, entresto, spironolactone. will add farxiga today.
-asa stopped as cath negative.
-He will need outpatient sleep study.
-LDL 152. continue dietary modification.
-Noted to have 2+ protein in urine. Urine creatinine levels are acceptable. No further workup at this time and this may be in part related to uncontrolled hypertension.
-will arrange OP cardiac follow up
HPI: Patient, who goes by Sergio, is a 29 yo M with PMH of HTN, obesity who presented to [facility] for evaluation of SOB. He reports noting worsening ELMORE with associated orthopnea, weight gain, LE edema over the last week. He reports he was diagnosed with
HTN ~2 years ago and was started on a medication for this however never followed up and his prescription ran out. He reports for the last 2 days he has had chest tightness with exertion, relieved by rest. Last evening while in ER, he walked around
and reports developing chest discomfort which resolved after 30 minutes of resting. He reports he presently has no chest discomfort. ProBNP 2079. trop 0.039. Denies tobacco or significant ETOH use. Cardiology consulted for evaluation.
Progress Note - Inspector Technician
Subjective
Date of Service: November 28, 2024
reports feeling much improved from admission. no CP, SOB
Objective
Labs:
11/28/24 03:16
11/28/24 03:16
Labs
Hgb 13.0 g/dL (13.0-18.0) 11/28/24 03:16
Hct 43.0 % (39.0-52.0) 11/28/24 03:16
Plt Count 274 10^3/uL (130-400) 11/28/24 03:16
Sodium 138 mmol/L (135-145) 11/28/24 03:16
Potassium 4.8 mmol/L (3.5-5.1) 11/28/24 03:16
BUN 25 mg/dl (9-20) H 11/28/24 03:16
Creatinine 0.9 mg/dL (0.7-1.3) 11/28/24 03:16
Glucose 90 mg/dl (70-99) 11/28/24 03:16
Vital Signs and I&O:
Vital Signs
Temp Pulse Resp BP Pulse Ox
97.7 F 77 16 116/83 98
11/28/24 03:22 11/28/24 03:00 11/28/24 03:22 11/28/24 02:52 11/28/24 03:22
Vital Signs
Temp Pulse Resp BP Pulse Ox
97.7 F 77 16 116/83 98
11/28/24 03:22 11/28/24 03:00 11/28/24 03:22 11/28/24 02:52 11/28/24 03:22
Intake & Output
11/26/24 11/27/24 11/28/24 11/29/24
07:59 07:59 07:59 07:59
Intake Total 480 / 480 480 / 480 720 / 720
Output Total 1700 / 1700 2225 / 2225 1650 / 1650
Balance -1220 / -1220 -1745 / -1745 -930 / -930
Physical Exam
Physical Exam
GEN: No distress, awake, alert, oriented x3
HEENT: supple, anicteric, mmm, eomi
LUNGS: CTA B/L, no wheezes/rales
CV: Reg, S1/S2, no murmur
ABD: soft, BS+, NT/ND
EXT: No cyanosis, clubbing, edema
NEURO: Gross non-focal
SKIN: Warm, pink, dry. No rash. R wrist site c/d/i
[2024-11-28] MEDS: ENTRESTO 24 MG/26 MG 1 TAB PO (08:47)
[2024-11-28] MEDS: COREG 6.25 MG PO (08:47)
[2024-11-28] MEDS: ALDACTONE 12.5 MG PO (08:47)
[2024-11-28] MEDS: LASIX 40 MG IV ×2 (08:48→15:52)
[2024-11-28] MEDS: LOW STRENGTH ASPIRIN PO (08:48)
--- NOTE | 2024-11-28 09:00 | W.PN.HOSP.TC ---
Today's Communication/Plan
-
Continue diuresis for 1 more day
Start Farxiga
Assessment / Plan
Assessment / Plan
#HFmrEF
Right/left heart cath yesterday showed no obstructive pathology.
Continue IV Lasix 40 mg every 12 hours
Continue carvedilol 6.25 twice daily
Continue Entresto twice daily
Continue spironolactone 12.5 mg
Start Farxiga
Diurese for 24 more hours per cardiology, DC in the morning
Outpatient sleep study
#Hypertension
Continue hydralazine 10 mg
#Nonischemic myocardial infarction
2D echo shows global hypokinesis
Left heart cath right heart cath planned for today
CRP elevated, continue to monitor
#Elevated D-dimer likely
CT PE negative
#Morbid obesity
Recommended dietary and exercise modification
Follow-up with PCP outpatient for consideration of GLP-1 agonist or surgery
Full code
Anticipated Discharge: Within 24 hours
Subjective/Interval History
-
Date of Service: November 28, 2024
Overnight patient reports no acute events. He said that he has no chest pain, shortness of breath, nausea or vomiting. Patient requested doctors note at time of discharge stating to switch from overnight caregiver to day shift so that he can better manage
his health.
Objective Data
-
Labs:
Laboratory Results
11/28/24
03:16
WBC 7.6
Hgb 13.0
Hct 43.0
Plt Count 274
Sodium 138
Potassium 4.8
Chloride 103
Carbon Dioxide 23
BUN 25 H
Creatinine 0.9
Glucose 90
Calcium 9.3
Total Bilirubin 0.7
AST 26
ALT 48
Alkaline Phosphatase 62
Vital Signs:
Vital Signs
Temp Pulse Resp BP Pulse Ox
97.9 F 82 18 131/90 100
11/28/24 07:00 11/28/24 08:47 11/28/24 07:00 11/28/24 08:47 11/28/24 07:00
I&O
11/27/24 11/28/24 11/29/24
06:59 06:59 06:59
Intake Total 480 / 480 720 / 720
Output Total 2225 / 2225 1650 / 1650
Balance -1745 / -1745 -930 / -930
Review of Systems
-
Unable to obtain full review of systems at this time due to: Dementia
All other systems: Reviewed and negative
Constitutional: Reports No Symptoms
EENT: Reports No Symptoms Reported
Respiratory: Reports No Symptoms
Cardiac: Reports No Symptoms
Abdomen/GI: Reports No Symptoms
Genitourinary: Reports No Symptoms
Musculoskeletal: Reports No Symptoms
Physical Exam
-
General: Well Developed, Well Nourished, Conversant and Morbidly Obese
HEENT: Normocephalic and Atraumatic
Respiratory: Clear to Auscultation
Cardiac: Regular Rhythm and S1/S2
GI: Soft, Nontender, Nondistended and Normal Bowel Sounds
Musculoskeletal: No Clubbing, No Cyanosis, Edema, Right Lower Extrem and Edema, Left Lower Extrem
Skin: Warm and Dry
Neuro: AO x 3
Psych: Calm
Data Reviewed
-
Medical Tests (Nuc Med, Echo etc): Report Reviewed by me
Labs: Labs Reviewed by me and Discussed with Physician
Old Records: Reviewed
[2024-11-28] MEDS: FARXIGA 10 MG PO (09:33)
[2024-11-28 11:36] VITALS: BP 132/89
--- NOTE | 2024-11-28 11:52 | PTCARENOTE ---
Discussed 1800 ml fluid restriction w/ pt. Pt verbalizes understanding. Pt has CHF booklet. Will monitor.
--- NOTE | 2024-11-28 12:12 | CM ---
Reviewed chart. Met with Mr. Klein to review discharge plans. He states he is feeling well and maybe able to go home soon. He states prior to admission he resides with his spouse in an walk-up apartment. He states he has eight steps to enter the
apartment. He states prior to admission he was independent with ambulation. He states he does not have any DME in the home. He states he has a prescription plan and uses [facility]. Medical work-up in progress. The discharge plan is to return
home with his spouse when medically stable.
--- NOTE | 2024-11-28 12:12 | W.DCSUMMARY ---
Discharge Summary
Discharge Data
Date of Admission: 11/24/24
Date of Discharge: 11/28/24
-
Pending Results: No
Hospital Course
Discharging Physician : Thomas Breaux MD
Disposition : Home
Primary care physician : unknown - known to pt
Principal Discharge diagnosis : CHF
Chronic Discharge diagnosis : HTN, CHF
Hospital Course : 29-year-old male with past medical history of hypertension presented to [place] with shortness of breath for 1 week. He was having a cough without fevers or chills, as well as significant lower extremity edema. In the
ED, patient had elevated blood pressure of 150/100, pulse of 119, and an EKG showing sinus tachycardia. Troponin was 0.05 and BNP was elevated to 2000+. CT angio was negative for PE. Patient was started on IV Lasix 40 mg every 12 hours, strict
ins and outs and fluid restriction. Echocardiogram showed mild to moderate left ventricular hypertrophy, global hypokinesis and ejection fraction of 40%. Patient started on carvedilol 6.25 twice daily, Entresto twice daily, spironolactone 12.5,
hydralazine 10 mg and Farxiga during stay. He underwent left and right heart catheterization 2/ which showed no obstructive disease. Patient needs to continue diuresis and follow-up with PCP and cardiology outpatient.
Important imaging findings :
Chest CT 11/23:
FINDINGS: Motion artifact limits evaluation. There are no filling defects within the proximal/central pulmonary arteries to suggest pulmonary embolism. Evaluation of the more peripheral pulmonary branches are significantly limited. The thoracic
aorta is normal in caliber and homogeneous in appearance.
The trachea and central airways are grossly patent. Findings suggest some mild pulmonary edema with moderate right and small left pleural effusions. There is no pneumothorax or pericardial effusion.
The heart is mildly enlarged.
There is no significant hilar, mediastinal or axillary lymphadenopathy.
There are some degenerative changes within the thoracic spine.
At least one gallstone is seen within the gallbladder, gallbladder partially included on this study.
IMPRESSION:
Evaluation of pulmonary arterial vasculature significantly limited by motion artifact, without findings to suggest central pulmonary embolism. Peripheral pulmonary embolism cannot be excluded.
Findings suggesting mild pulmonary edema with moderate right and small left pleural effusions.
Mild cardiomegaly.
Echo 11/24:
CONCLUSIONS
1. Dilated left ventricle with mild to moderate left ventricular hypertrophy,
global hypokinesis and ejection fraction 40%
2. Mitral annular calcification, thickened mitral leaflets, mild mitral
regurgitation and dilated left atrium
3. Normal aortic valve
4. Normal size right ventricle with mild hypokinesis, could not determine
pulmonary artery systolic pressure
Procedure findings :
Catheterization 11/27:
CONCLUSIONS
1. No obstructive coronary artery disease.
2. Significantly elevated right and left-sided filling pressures with reduced cardiac output.
3. Of note, soon after the [place]-Chinyere catheter was inserted into the PA, patient had significant bradycardia with transient 2-1 AVblock and was treated with 1 mg of atropine with recovery of heart rate and blood pressure. He had transient cold
sweats and lightheadedness which resolved soon after the heart rate normalized.
RECOMMENDATIONS
1. Wean radial band per protocol.
2. Optimization of goal-directed medical therapy for nonischemic cardiomyopathy.
3. Aggressive management of cardiovascular risk factors.
4. Eventual referral for outpatient cardiac rehab.
Discharge Plan
-
Patient Disposition: Home (Routine Discharge)
Discharge Diagnosis/Procedures: Acute HFmrEF, Cardiac catheterization
Condition: Good
Diet: 2 Gram Sodium and Restrict fluids to 64 oz
Activity: Other activity
Additional Activity: needs to transition to day shift
Driving Restrictions: No driving for 24 hours
Blood Work: BMP in 1 week, script from PCP
Others Tests: would discuss with outpatient cardiology for cardiac MRI
Specialty Instructions: Weigh Daily- Call MD for wt gain/loss 3 lbs overnight/5 lbs in 1 week
Instructions: *DCA Heart Failure Instructions
Stand Alone Forms: Return to Work
Referrals:
Sarah Pope CRNP [Specified Professional Personl] - in less than 1 week
Lyn George PA-C [Specified Professional Personl] - 12/04/24 8:20 am (Cardiology followup appointment at the [place] office. Please call with questions. )
Prescriptions:
New
carvedilol 6.25 mg Tablet
6.25 mg PO BID Qty: 60 0RF
spironolactone 25 mg Tablet
12.5 mg PO DAILY Qty: 30 0RF
dapagliflozin propanediol 10 mg Tablet
10 mg PO DAILY Qty: 30 0RF
sacubitril-valsartan [Entresto] 24-26 mg Tablet
1 tab PO BID Qty: 60 0RF
furosemide [Lasix] 40 mg tablet
40 mg PO BID Qty: 60 0RF
Discharge Orders:
Discharge Patient (As Directed); Ordered 11/28/24
Ordered By: Thomas Breaux
Care Plan Goals
Care Plan Goals:
Problem: Readiness for enhanced knowledge related to diagnosis and treatment plan
Goal: Understand your diagnosis and treatment plan needs, including medications if applicable.
Instructions: Know your diagnosis, underlying causes and treatment plan options, including medications if applicable. Consult with your health care team to learn about your diagnosis and treatment plan, including medications if applicable.
Discharge Date and Time
Print Language: GEORGIAN
[2024-11-28] MEDS: AFLURIA (36 mos+) 2024-2025 FORMULA 0.5 ML IM (15:43)
[2024-11-28 15:51] VITALS: BP 129/86
--- NOTE | 2024-11-29 12:03 | W.HF.CON ---
Heart Failure
- LV Function
Left ventricular function study result: LV Ejection fraction 36-40%
Ejection Fraction Percentage: 40
- ARNI
Patient already on ARNI: Yes
- ACEI/ARB
Patient already on ACEI/ARB: No
Heart Failure ACEI/ARB Not Indicated: Patient ordered/on ARNI
- Beta Alanis
Patient already on Evidence Based Beta Alanis: Yes
- Mineralocorticord Receptor Antagonist
Patient already on MRA: Yes
- SGLT-2 Inhibitor
Patient already on SGLT-2 Inhibitor: Yes
- NYHA CHF Classification
NYHA CHF Classification Level: Class II - Slight limitation by SOB and/or fatigue during mod exertion
- ACC/AHA Stage
ACC/AHA Stage: Stage C: Symptomatic Heart Failure
== END 2024-11-28 16:29 | disposition home or self-care (01) | DRG 286 ==
LOC: IVU 02:53
PROVIDERS: Hospitalist; Internal Medicine Cardiovascular Disease; Internal Medicine Interventional Cardiology; Nurse Practitioner; ADMITTING PHYSICIAN Internal Medicine; ATTENDING PHYSICIAN Internal Medicine; EMERGENCY PHYSICIAN Student in an Organized Health Care Education/Training Program; OTHER PHYSICIAN Internal Medicine Cardiovascular Disease
PROC: 4A023N8 Measurement of Cardiac Sampling and Pressure, Bilateral, Percutaneous Approach (ICD-10-PCS; 2024-11-27)
PROC: B2111ZZ Fluoroscopy of Multiple Coronary Arteries using Low Osmolar Contrast (ICD-10-PCS; 2024-11-27)
DX: I11.0 Hypertensive heart disease with heart failure (principal); I50.21 Acute systolic (congestive) heart failure; Z68.42 Body mass index [BMI] 45.0-49.9, adult; Z82.49 Family history of ischemic heart disease and other diseases of the circulatory system; D72.829 Elevated white blood cell count, unspecified; I5A Non-ischemic myocardial injury (non-traumatic); E66.01 Morbid (severe) obesity due to excess calories; D64.9 Anemia, unspecified; E78.5 Hyperlipidemia, unspecified; I34.81 Nonrheumatic mitral (valve) annulus calcification; I44.1 Atrioventricular block, second degree
CPT/HCPCS: 71275; 76937; 80048; 80053; 80061; 81003; 81015; 82570; 83036; 83735; 83880; 84100; 84156; 84443; 84484; 85025; 85027; 85379; 85652; 86140; 90686; 93005; 93306; 93460; 96374; 99152; 99153; 99285; C1894; G0008; Q9967